=== PATIENT | female | born 1965 | race Caucasian/White ===

== ENCOUNTER 2019-05-03 06:17 | Day surgery (SDC) | payer BC ==
[~2019-05-03] VITALS: Ht 170.2 cm; Wt 102.5 kg
[2019-05-03] VITALS (8 sets, daily range): BP systolic 117–161; BP diastolic 46–63; PULSE 72–88; TEMP 97.3–98.9
[2019-05-03] MEDS ORDERED: TRELEGY ELLIPT1 EACH IH (07:37)
[2019-05-03] MEDS ORDERED: GLUCOPHAGE500 MG/TAB PO (07:38)
[2019-05-03] MEDS ORDERED: LOPRESSOR 550 MG/TAB PO (07:39)
[2019-05-03] MEDS ORDERED: PEPCID 20MG TAB20 MG PO (07:39)
[2019-05-03] MEDS ORDERED: PLAVIX 75MG TAB75 MG PO (07:40)
[2019-05-03] MEDS ORDERED: LIPITOR 40MG TA40 MG PO (07:40)
[2019-05-03] MEDS ORDERED: PROAIR HFA0.09 MG/AC IH (07:41)
[2019-05-03] MEDS ORDERED: ASPIRIN 81M81 MG/TA2 PO (07:41)
[2019-05-03] MEDS ORDERED: OXYGEN MC (07:42)
--- NOTE | 2019-05-03 11:00 | NUR ---
Respiratory therapy into see patient at this time.
--- NOTE | 2019-05-03 11:33 | NUR ---
Initial visit; Patient and her thanked Social Worker Aide for offering encouragement and prayer prior to her surgical procedure.
[2019-05-03] MEDS ORDERED: PERCOCET 325 MG1 TA2 PO (15:11)
[2019-05-03] MEDS ORDERED: MOTRIN 600600 MG/TAB PO (15:11)
--- NOTE | 2019-05-03 15:35 | NUR ---
Patient [place] [facility] [place] and [place] intact. Patient monitor applied. Vitals stable. Patient's at bedside. Patient given water and toast. Patient reports nausea is better, states left arm feels a little sore. Incision x2 clean/dry/intact, no drainage noted.
--- NOTE | 2019-05-03 16:35 | NUR ---
Oxygen therapy discontinued at this time. Vitals stable. Patient eating toast and drinking ice water. Patient denies pain or nausea.
--- NOTE | 2019-05-03 16:50 | NUR ---
Patient up to restroom at this time. Patient denies nausea. Reports slight discomfort under arm.
--- NOTE | 2019-05-03 16:55 | NUR ---
Patient ambulates back from restroom without any complications. Patient was able to urinate without any difficulties. Patient monitor reapplied. Patient taking deep breathes on room air and SpO2 is within normal limits.
--- NOTE | 2019-05-03 17:10 | NUR ---
Dismissal instructions gone over with patient and patient's spouse. Both verbalize understanding and all questions answered.
--- NOTE | 2019-05-03 17:19 | NUR ---
Patient discharged via wheelchair to patient's vehicle her spouse is driving. Patient and family leave thanking staff for services.
[2019-05-13] MEDS ORDERED: MOTRIN 200200 MG/TAB PO (10:24)
[2019-05-13] MEDS ORDERED: MOTRIN 600600 MG/TAB PO (13:23)
== END 2019-05-03 17:20 | disposition home or self-care (01) ==
LOC: SDCO 06:17 → EDBD 12:30 → SDCO 12:30
DX: C50.412 Malignant neoplasm of upper-outer quadrant of left female breast (principal); Z17.0 Estrogen receptor positive status [ER+]; I25.10 Atherosclerotic heart disease of native coronary artery without angina pectoris; I10 Essential (primary) hypertension; I25.2 Old myocardial infarction; Z79.02 Long term (current) use of antithrombotics/antiplatelets; Z79.82 Long term (current) use of aspirin; Z79.899 Other long term (current) drug therapy; E11.9 Type 2 diabetes mellitus without complications; Z79.84 Long term (current) use of oral hypoglycemic drugs; Z95.1 Presence of aortocoronary bypass graft; Z87.891 Personal history of nicotine dependence; G47.33 Obstructive sleep apnea (adult) (pediatric); J45.909 Unspecified asthma, uncomplicated; E78.00 Pure hypercholesterolemia, unspecified
CPT/HCPCS: A9541; J0690; J1100; J2250; J2405; J2550; J2704; J2795; J3010; J7030

== ENCOUNTER → 2019-05-13 | Day surgery (SDC) | payer BC ==
[~2019-05-13] VITALS: Ht 170.2 cm; Wt 100.0 kg
[~2019-05-13] MED LIST: ASPIRIN 81M81 MG/TA2 PO; GLUCOPHAGE500 MG/TAB PO; LIPITOR 40MG TA40 MG PO; LOPRESSOR 550 MG/TAB PO; MOTRIN 200200 MG/TAB PO; MOTRIN 600600 MG/TAB PO; OXYGEN MC; PEPCID 20MG TAB20 MG PO; PERCOCET 325 MG1 TA2 PO; PLAVIX 75MG TAB75 MG PO; PROAIR HFA0.09 MG/AC IH; TRELEGY ELLIPT1 EACH IH
[2019-05-13 10:42] VITALS: BP 134/75; PULSE 70; TEMP 97.3
--- NOTE | 2019-05-13 10:45 | NUR ---
Kaden Gilbert CRNA contacted at this time to go over patient's audible wheezing. Order obtained for respiratory treatment order.
--- NOTE | 2019-05-13 10:55 | NUR ---
Respiratory Therapy into see patient at this time.
[2019-05-13 13:04] VITALS: BP 127/69; PULSE 75; TEMP 97.2
--- NOTE | 2019-05-13 13:04 | NUR ---
Patient arrives back from OR alert, denies pain or nausea. Incision on upper breast is clean/dry/intact without a dressing, no drainage noted. Patient monitor applied, vitals stable. Patient's family at bedside. Patient given water, coffee and pudding.
[2019-05-13 13:15] VITALS: PULSE 75
[2019-05-13 13:30] VITALS: BP 112/50; PULSE 74
--- NOTE | 2019-05-13 13:30 | NUR ---
Patient denies having any pain or nausea. Patient tolerates food and drink without any complications.
--- NOTE | 2019-05-13 13:45 | NUR ---
Vitals stable, incision clean/dry/intact.
--- NOTE | 2019-05-13 13:52 | NUR ---
Dismissal instructions gone over with patient and patient's [id number], both verbalize understanding and all questions answered.
--- NOTE | 2019-05-13 14:05 | NUR ---
Patient dismissed to private vehicle via wheelchair that her [id number] is driving without any complications. Patient leaves thanking staff for services.
== END ==
LOC: SDCO 09:56
DX: C50.412 Malignant neoplasm of upper-outer quadrant of left female breast (principal); N60.22 Fibroadenosis of left breast; N62 Hypertrophy of breast; I10 Essential (primary) hypertension; E11.9 Type 2 diabetes mellitus without complications; Z79.84 Long term (current) use of oral hypoglycemic drugs; G47.30 Sleep apnea, unspecified; Z79.02 Long term (current) use of antithrombotics/antiplatelets; Z79.899 Other long term (current) drug therapy; Z79.82 Long term (current) use of aspirin; Z87.891 Personal history of nicotine dependence
CPT/HCPCS: J2250; J2704; J3010; J7030